=== PATIENT | female | born 1960 | race Caucasian/White ===

== ENCOUNTER 2016-12-14 16:02 | Emergency (ER) | payer BC ==
--- NOTE | ~2016-12-14 | CR133 ---
[facility]. [facility] A Service of [facility] & [facility] RADIOLOGY TEXT RESULTS PATIENT: MARYANNE KIRKPATRICK LOCATION: SED : 60 UNIT #: [id number] AGE: [address]: Sivan Chang SEX: F ORDER DR: [id number] [address] [id number] E MR#: [id number] Acc #: [id number] NAME: MARYANNE KIRKPATRICK. : 1960 SEX: F STUDY DATE/TIME: 12/14/2016 16:24 UNIT: SED ROOM: STUDY DESCRIPTION: CR Forearm 2 View Rt Attending Physician: Sivan Chang Pa-C Ordering Physician: Sivan Chang Pa-C MEDICAL IMAGING REPORT This report is preliminary unless electronic signature is present. EXAM Right forearm 2 views HISTORY Laceration today. Pain. FINDINGS 2 views of the right forearm demonstrate normal bone alignment. No fracture, or abnormal sclerosis or opaque soft tissue foreign body. No joint space narrowing. Focal soft tissue swelling along the lateral margin of the distal forearm at the reported site of injury. IMPRESSION 1. No fracture or opaque foreign body. Normal mineralization. 2. Focal soft tissue swelling at the site of reported injury lateral distal forearm. Dictated by... Osito Robles M.D. THIS IS AN ELECTRONICALLY VERIFIED REPORT Osito Robles M.D. at 12/15/2016 2:35 PM DFGerman/landy TD: 12/15/2016 07:05 JOB #: [id number] MEDICAL IMAGING REPORT Page 1 of 1
[~2016-12-14 16:02] MED LIST: SUDAFED; VAGIFEM25 MCG PO
[2016-12-14] MEDS ORDERED: ESTRADIOL1 MG PO (16:21)
[2016-12-14] MEDS ORDERED: METOPROLOL TAR25 MG PO (16:22)
[2016-12-14] MEDS ORDERED: LASIX20 MG PO (16:22)
[2016-12-14] MEDS ORDERED: FLORINEF0.1 M1 PO (16:23)
== END 2016-12-14 17:01 | disposition home or self-care (01) ==
LOC: SED 16:02
DX: S51.811A Laceration without foreign body of right forearm, initial encounter (principal); I10 Essential (primary) hypertension; Z79.899 Other long term (current) drug therapy; I48.91 Unspecified atrial fibrillation; W45.8XXA Other foreign body or object entering through skin, initial encounter; Y92.009 Unspecified place in unspecified non-institutional (private) residence as the place of occurrence of the external cause
CPT/HCPCS: 73090; 90471; 90715; 99283